=== PATIENT | male | born 1985 | race African-American/Black ===

== ENCOUNTER 2017-02-02 21:02 | Emergency (ER) | payer OTHER ==
[~2017-02-02] VITALS: Ht 180.3 cm; Wt 99.0 kg
[~2017-02-02 21:02] MED LIST: ALBUAER INH; ASPI-232 PO; ASPI1TAB83 PO; BUSP-8 PO; CRDCD/180 PO; DILT180C58 PO; GLC/500 PO; PRLSR20 PO; PROP1TAB PO; SERT50TA PO
[2017-02-02 21:16] VITALS: TEMP 37.5; Ht 180.3 cm; Wt 99.0 kg
[2017-02-02] MEDS ORDERED: PROP1TAB PO (21:45)
[2017-02-02] MEDS ORDERED: PANT40TA PO (21:48)
[2017-02-02 21:55] LABS: BASO % 0.1 %; BASO ABS # 0.01 K/uL (0-0.2); COMPLETE YES; EOS % 1.4 %; HEMATOCRIT 41.2 % (42-52); IG% 0.2 %; LYMPH % 30.7 %; MEAN CELL VOLUME 89.2 fL (80-100); MEAN CORPUSCULAR HEMOGLOBIN 31.8 pg (25-34); MEAN CORPUSCULAR HGB CONC 35.7 g/dl (32-36); MONO % 6.6 %; PLATELET COUNT 242 K/uL (130-400); RED BLOOD COUNT 4.62 M/uL (4.7-6.1); WHITE BLOOD COUNT 9.78 K/uL (4.8-10.8)
--- NOTE | 2017-02-02 22:10 | DIAGNOSTIC IMAGING REPORT ---
CHEST ONE VIEW PORTABLE CLINICAL HISTORY: Atypical chest pain COMPARISON STUDY: June 22, 2016 FINDINGS: The cardiac and mediastinal contours are normal. There is no evidence of focal pulmonary consolidation. There is no evidence of failure. No pleural effusions are visualized.[ IMPRESSION: No active disease in the chest. Electronically signed by: Milo Herzog M.D. 02/02/2017 10:08 PM Dictated Date/Time: 02/02/2017 10:08 PM
[2017-02-02 22:20] LABS: ALKALINE PHOSPHATASE 60 U/L (45-117); ALT/SGPT 52 U/L (12-78); BLOOD UREA NITROGEN 7 mg/dl (7-18); BUN/CREATININE RATIO 5.8 (10-20); CARBON DIOXIDE 26 mmol/L (21-32); CHLORIDE 103 mmol/L (98-107); GLUCOSE 128 mg/dl (70-99)
[2017-02-02 22:36] LABS: AST/SGOT 33 U/L (15-37); MAGNESIUM 1.9 mg/dl (1.8-2.4); POTASSIUM 3.5 mmol/L (3.5-5.1); SODIUM 144 mmol/L (136-145)
[2017-02-02 22:37] LABS: CKMB/CK RATIO 0.1 (0-3.0)
[2017-02-02 23:55] VITALS: BP 125/87; PULSE 91; O2SAT 98
--- NOTE | 2017-02-03 03:15 | EMERGENCY ROOM VISIT NOTE ---
History First contact with patient: 21:41 Chief Complaint: TACHYCARDIA Stated Complaint: CHEST PRESSURE Nursing Triage Summary: Arrives ALS for evaluation of sudden onset of chest pressure, palpitation with radiation to leftarm/hand. Pt reports left arm still tingling, cold feeling and reports chest pressure 6. Pt reports drinking and arguing with s/o today. PMH: SVT; Ablation x 2; will have loop recorder inplanted because ablation failed. DM type 2; PTSD; TBI; asthma; PUD; HTN. History of Present Illness The patient is a 31 year old male who presents to the Emergency Room with complaints of chest discomfort with feeling fatigued. Patient's been having chest discomfort since noon today. He is and fatigue for the past week. He has driven to [place] recently for further workup for his history of SVT. Patient describes the chest discomfort as pressure, 5 out of 10. Nothing makes it better or worse. He has been underneath more stressed lately. He is having problems with his marriage currently. Patient denies suicidal or homicidal ideations, delusions, hallucinations, dyspnea, abdominal pain, leg pain or swelling. He states he had some alcohol today. No drugs. He does smoke. Review of Systems See HPI for pertinent positives & negatives. A total of 10 systems reviewed and were otherwise negative. Past Medical/Surgical History Medical Problems: (1) Diabetes (2) Hypertension (3) SVT (supraventricular tachycardia) PTSD, TBI, asthma Family History Patient reports no known family medical history. Social History Smoking Status: Current Every Day Smoker Alcohol Use: occasionally Drug Use: none Marital Status: Housing Status: lives with family Occupation Status: employed Current/Historical Medications Scheduled Aspirin (Aspir-81), 81 MG PO DAILY Diltiazem Hcl Coated Beads (Diltiazem Cd), 180 MG PO DAILY Metformin Hcl (Glucophage), 500 MG PO BIDM Pantoprazole (Protonix), 40 MG PO BID Propranolol (Inderal), 60 MG PO BID Scheduled PRN Albuterol (Proventil Hfa), 2 PUFFS INH Q4 PRN for SOB/Wheezing Allergies Coded Allergies: No Known Allergies (Unverified , 06/22/16) Physical Exam Vital Signs Date Time Temp Pulse Resp B/P Pulse Ox O2 Delivery O2 Flow Rate FiO2 02/02/17 23:55 91 18 125/87 98 02/02/17 23:10 88 18 124/70 98 Room Air 4/8/17 21:54 Room Air 02/02/17 21:53 Room Air 02/02/17 21:16 37.5 101 19 151/92 99 Room Air 02/02/17 21:10 106 02/02/17 21:09 Room Air Pain Rating (0-10): 0 Physical Exam VITALS: Vitals are noted on the nurse's note and reviewed by myself. Vital signs stable. GENERAL: Pleasant male, in no acute distress, nondiaphoretic, well-developed well-nourished. SKIN: The skin was without rashes, erythema, edema, or bruising. There is no tenting of the skin. Capillary reflex less than 2 seconds. HEAD: Normocephalic atraumatic. EARS: External auditory canals clear, tympanic membranes pearly varela without erythema or effusion bilaterally. EYES: Pupils equal round and reactive to light and accommodation. Conjunctivae without injection, sclerae without icterus. Extraocular movements intact. NOSE: Patent, turbinates without inflammation or discharge. MOUTH: Mucous membranes moist. Pharynx without erythema or exudate. Uvula midline. Airway patent. Tongue does not deviate. NECK: Supple without nuchal rigidity. No lymphadenopathy. No thyromegaly. Cervical spine is nontender. No JVD. HEART: Regular rate and rhythm without murmurs gallops or rubs. Chest nontender to palpation LUNGS: Clear to auscultation bilaterally without wheezes, rales or rhonchi. No dullness to percussion. No retractions or accessory muscle use. ABDOMEN: Positive bowel sounds x 4. Normal tympanic percussion. Soft, nontender, without masses or organomegaly. Colon sign negative. No guarding or rebound tenderness. MUSCULOSKELETAL: No muscle atrophy, erythema, or edema noted. NEURO: Patient was alert and oriented to person place and time. Normal sensation to light and sharp touch. No focal neurological deficits. Medical Decision & Procedures Laboratory Results 02/02/17 21:00 Red Blood Count 4.62, Mean Corpuscular Volume 89.2, Mean Corpuscular Hemoglobin 31.8, Mean Corpuscular Hemoglobin Concent 35.7, Mean Platelet Volume 11.0, Neutrophils (%) (Auto) 61.0, Lymphocytes (%) (Auto) 30.7, Monocytes (%) (Auto) 6.6, Eosinophils (%) (Auto) 1.4, Basophils (%) (Auto) 0.1, Neutrophils # (Auto) 5.96, Lymphocytes # (Auto) 3.00, Monocytes # (Auto) 0.65, Eosinophils # (Auto) 0.14, Basophils # (Auto) 0.01 02/02/17 21:00 Test 02/02/17 21:00 02/02/17 22:09 White Blood Count 9.78 K/uL (4.8-10.8) Red Blood Count 4.62 M/uL (4.7-6.1) Hemoglobin 14.7 g/dL (14.0-18.0) Hematocrit 41.2 % (42-52) Mean Corpuscular Volume 89.2 fL (80-100) Mean Corpuscular Hemoglobin 31.8 pg (25-34) Mean Corpuscular Hemoglobin Concent 35.7 g/dl (32-36) Platelet Count 242 K/uL (130-400) Mean Platelet Volume 11.0 fL (7.4-10.4) Neutrophils (%) (Auto) 61.0 % Lymphocytes (%) (Auto) 30.7 % Monocytes (%) (Auto) 6.6 % Eosinophils (%) (Auto) 1.4 % Basophils (%) (Auto) 0.1 % Neutrophils # (Auto) 5.96 K/uL (1.4-6.5) Lymphocytes # (Auto) 3.00 K/uL (1.2-3.4) Monocytes # (Auto) 0.65 K/uL (0.11-0.59) Eosinophils # (Auto) 0.14 K/uL (0-0.5) Basophils # (Auto) 0.01 K/uL (0-0.2) RDW Standard Deviation 45.6 fL (36.4-46.3) RDW Coefficient of Variation 13.9 % (11.5-14.5) Immature Granulocyte % (Auto) 0.2 % Immature Granulocyte # (Auto) 0.02 K/uL (0.00-0.02) Anion Gap 14.0 mmol/L (3-11) Est Creatinine Clear Calc Drug Dose 108.9 ml/min Estimated GFR () 94.1 Estimated GFR (Non- 81.2 BUN/Creatinine Ratio 5.8 (10-20) Calcium Level 9.0 mg/dl (8.5-10.1) Magnesium Level 1.9 mg/dl (1.8-2.4) Total Bilirubin 0.5 mg/dl (0.2-1) Direct Bilirubin < 0.1 mg/dl (0-0.2) Aspartate Amino Transf (AST/SGOT) 33 U/L (15-37) Alanine Aminotransferase (ALT/SGPT) 52 U/L (12-78) Alkaline Phosphatase 60 U/L (45-117) Total Creatine Kinase 522 U/L (39-308) Creatine Kinase MB 0.6 ng/ml (0.5-3.6) Creatine Kinase MB Ratio 0.1 (0-3.0) Troponin I < 0.015 ng/ml (0-0.045) Total Protein 7.9 gm/dl (6.4-8.2) Albumin 4.1 gm/dl (3.4-5.0) Lipase 195 U/L (73-393) Thyroid Stimulating Hormone (TSH) 1.590 uIu/ml (0.300-4.500) Chemistry Specimen Hemolysis D-Dimer 430 ug/L FEU (0-500) Ethyl Alcohol mg/dL < 3.0 mg/dl (0-3) ED Course Prior records/ancillary studies reviewed. Triage Nursing notes reviewed. The patient's history was concerning for chest pain. Differential diagnosis: Etiologies such as cardiac ischemia, aortic dissection, pulmonary embolism, pneumonia, pneumothorax, musculoskeletal, infections, pericarditis, myocarditis , esophageal rupture, gastrointestinal, as well as others were entertained. Physical examination: As above. ER treatment provided: By mouth fluids On reassessment the patient felt better. Diagnostic interpretation by me: The electrocardiogram was negative for pathologic change. Normal sinus, normal intervals, no acute ST-T wave changes. Rate of 105. Impression sinus tachycardia interpreted by myself The labs revealed negative d-dimer. Negative troponin, hyperglycemia without DKA Imaging studies: Chest x-ray as above CHEST ONE VIEW PORTABLE CLINICAL HISTORY: Atypical chest pain COMPARISON STUDY: June 22, 2016 FINDINGS: The cardiac and mediastinal contours are normal. There is no evidence of focal pulmonary consolidation. There is no evidence of failure. No pleural effusions are visualized.[ IMPRESSION: No active disease in the chest. Electronically signed by: Milo Herzog M.D. 02/02/2017 10:08 PM Exam and history seem consistent with noncardiac chest pain. Patient had unremarkable workup as above. Negative d-dimer. Negative troponin. He has been underneath more stress lately and having difficulties with his marriage. His symptoms could be related to this. [facility] or here in the ER sooner for chest pain, difficulty breathing, suicidal or homicidal ideations, worsening signs or symptoms or as needed.By the evaluation outlined above emergent etiologies such as cardiac ischemia, aortic dissection, pulmonary embolism, pneumonia, pneumothorax, infections, pericarditis, myocarditis, gastrointestinal, as well as others were deemed relatively unlikely. The pt informed about the findings as listed above. All questions were answered and pleased with the treatment. Return instructions were outlined and the patient was discharged in stable condition. ] Referral: The patient was referred back to primary care physician for follow-up in 2 to 3 days for a recheck of the current condition. Case reviewed with my attending Medical Decision As above Impression Primary Impression: Precordial chest pain Departure Information Dispostion Home / Self-Care Condition GOOD Referrals Maritza Alcantara (PCP) Forms WORK / SCHOOL INSTRUCTIONS, HOME CARE DOCUMENTATION FORM, IMPORTANT VISIT INFORMATION Patient Instructions Chest Pain - [facility] Additional Instructions Ibuprofen(Motrin, Advil) may be used for fever or pain. Use 600mg every six hours as needed. Take with food. Avoid using more than 2400mg in a 24 hour period. Do not use 2400mg per day for more than three consecutive days without physician direction. Prolonged inappropriate use can lead to stomach upset or ulcers. (AND/OR) Acetaminophen(Tylenol) may be used for fever or pain. Use 1000mg every six hours as needed. Avoid using more than 3000mg in a 24 hour period. Rest and drink plenty of fluids as tolerated. Continue current medications. Avoid strenuous activities and anything that worsens your pain. Resume normal activities once your symptoms resolve. Return to the ER immediately for worsening or persistent chest pain, abdominal pain, vomiting, fevers, chest pains, difficulty breathing, worsening of your condition, or as needed. Follow up with your primary physician in 2-3 days for a recheck of your current condition.
== END 2017-02-02 23:56 | disposition home or self-care (01) ==
LOC: EDBD 21:02 → C.EDB 21:04
DX: R07.2 Precordial pain (principal); E11.9 Type 2 diabetes mellitus without complications; I10 Essential (primary) hypertension; F43.10 Post-traumatic stress disorder, unspecified; I47.1 Supraventricular tachycardia; S06.9X0A Unspecified intracranial injury without loss of consciousness, initial encounter; X58.XXXA Exposure to other specified factors, initial encounter; J45.909 Unspecified asthma, uncomplicated; F17.200 Nicotine dependence, unspecified, uncomplicated; Z79.82 Long term (current) use of aspirin

== ENCOUNTER 2018-02-24 15:37 | Emergency (ER) | payer OTHER ==
[~2018-02-24] VITALS: Ht 180.3 cm; Wt 111.4 kg
[~2018-02-24 15:37] MED LIST changes: -ASPI1TAB83 PO; -BUSP-8 PO; -CRDCD/180 PO; -DILT180C58 PO; +DILT180C96 PO; +PANT40TA PO; -PRLSR20 PO; -SERT50TA PO
[2018-02-24 15:48] VITALS: TEMP 36.8; O2SAT 100; Ht 180.3 cm; Wt 111.4 kg
--- NOTE | 2018-02-24 16:03 | EMERGENCY ROOM VISIT NOTE ---
History Report prepared by Maribeth: Annalee Vargas Under the Supervision of: Dr. Stone Abebe D.O. First contact with patient: 15:43 Chief Complaint: PALPITATIONS Stated Complaint: PALPITATIONS History of Present Illness The patient is a 32 year old male who presents to the Emergency Room with complaints of a resolved episode of heart palpitations which occurred prior to arrival. 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 The patient states that he then lost consciousness, noting that he was told his heart had stopped beating. He followed up with a pan washer afterwards and was diagnosed with supraventricular tachycardia. On 10/29/2017 the patient had a pacemaker put in place. Earlier today, the patient states that he had an episode of palpitations that last about 3 minutes. Afterwards, he felt exhausted and a "little off". He denies any chest pain, trouble breathing, or recent illness. Source of History: patient Onset: today Position: other (heart) Quality: other (palpitations) Timing: resolved Associated Symptoms: No chest pain Note: Patient denies trouble breathing. Review of Systems See HPI for pertinent positives & negatives. A total of 10 systems reviewed and were otherwise negative. Past Medical & Surgical Medical Problems: (1) Diabetes (2) Hypertension (3) SVT (supraventricular tachycardia) Family History Patient reports no known family medical history. Social History Smoking Status: Current Every Day Smoker Alcohol Use: occasionally Drug Use: none Marital Status: Housing Status: lives with family Occupation Status: employed Current/Historical Medications Scheduled Aspirin (Aspir-81), 81 MG PO DAILY Diltiazem Hcl Coated Beads (Diltiazem Cd), 180 MG PO DAILY Duloxetine Hcl (Cymbalta), 60 MG PO DAILY Fish Oil (Linwood-3), 1 CAP PO DAILY Metformin Hcl (Glucophage), 500 MG PO BIDM Propranolol (Inderal), 60 MG PO BID Rabeprazole Sodium (Aciphex), 20 MG PO BID Ranitidine HCl (Ranitidine HCl), 300 MG PO HS Scheduled PRN Albuterol Hfa (Ventolin Hfa), 2-4 PUFFS INH Q6H PRN for SOB/Wheezing Allergies Coded Allergies: Ibuprofen (Unverified Allergy, Unknown, RASH, 02/24/18) Physical Exam Vital Signs Date Time Temp Pulse Resp B/P (MAP) Pulse Ox O2 Delivery O2 Flow Rate FiO2 02/24/18 17:33 86 16 124/76 99 Room Air 02/24/18 16:27 84 02/24/18 15:48 36.8 83 12 139/88 100 Room Air 02/24/18 15:48 100 Room Air 02/24/18 15:48 100 Room Air Physical Exam GENERAL: Patient is awake, alert, and in no acute distress. Patient is resting comfortably and showing no signs of anxiety EYES: The conjunctivae are clear. The pupils are round and reactive. EARS, NOSE, MOUTH AND THROAT: The nose is without any evidence of any deformity. Mucous membranes are moist tongue is midline NECK: The neck is nontender and supple. RESPIRATORY: Normal respiratory effort is noted there is no evidence of wheezing rhonchi or rales CARDIOVASCULAR: Regular rate and rhythm noted there no murmurs rubs or gallops normal S1 normal S2 GASTROINTESTINAL: The abdomen is soft. Bowel sounds are present in all quadrants. Abdomen is nontender MUSCULOSKELETAL/EXTREMITIES: There is no evidence of gross deformity full range of motion is noted in the hips and shoulders SKIN: There is no obvious evidence of any rash. There are no petechiae, pallor or cyanosis noted. NEUROLOGIC: Patient is awake alert and oriented x3 Medical Decision & Procedures ER Provider Diagnostic Interpretation: Radiology results as stated below per my review and radiologist interpretation: CHEST ONE VIEW PORTABLE CLINICAL HISTORY: EVALUATE ALTERED MENTAL STATUS/WEAKNESS COMPARISON STUDY: 02/02/2017 FINDINGS: Interval placement of a permanent bipolar cardiac pacemaker. Leads in good position. No evidence of pneumothorax. Lungs are considered clear. IMPRESSION: No acute process. The above report was generated using voice recognition software. It may contain grammatical, syntax or spelling errors. Electronically signed by: Luis Fernando Parker M.D. 02/24/2018 4:47 PM Dictated Date/Time: 02/24/2018 4:46 PM Laboratory Results 02/24/18 15:40 Red Blood Count 4.99, Mean Corpuscular Volume 87.8, Mean Corpuscular Hemoglobin 31.5, Mean Corpuscular Hemoglobin Concent 35.8, Mean Platelet Volume 10.6, Neutrophils (%) (Auto) 51.5, Lymphocytes (%) (Auto) 40.5, Monocytes (%) (Auto) 6.0, Eosinophils (%) (Auto) 1.5, Basophils (%) (Auto) 0.4, Neutrophils # (Auto) 4.25, Lymphocytes # (Auto) 3.33, Monocytes # (Auto) 0.49, Eosinophils # (Auto) 0.12, Basophils # (Auto) 0.03 02/24/18 15:40 Test 02/24/18 15:40 White Blood Count 8.23 K/uL (4.8-10.8) Red Blood Count 4.99 M/uL (4.7-6.1) Hemoglobin 15.7 g/dL (14.0-18.0) Hematocrit 43.8 % (42-52) Mean Corpuscular Volume 87.8 fL (80-100) Mean Corpuscular Hemoglobin 31.5 pg (25-34) Mean Corpuscular Hemoglobin Concent 35.8 g/dl (32-36) Platelet Count 220 K/uL (130-400) Mean Platelet Volume 10.6 fL (7.4-10.4) Neutrophils (%) (Auto) 51.5 % Lymphocytes (%) (Auto) 40.5 % Monocytes (%) (Auto) 6.0 % Eosinophils (%) (Auto) 1.5 % Basophils (%) (Auto) 0.4 % Neutrophils # (Auto) 4.25 K/uL (1.4-6.5) Lymphocytes # (Auto) 3.33 K/uL (1.2-3.4) Monocytes # (Auto) 0.49 K/uL (0.11-0.59) Eosinophils # (Auto) 0.12 K/uL (0-0.5) Basophils # (Auto) 0.03 K/uL (0-0.2) RDW Standard Deviation 44.3 fL (36.4-46.3) RDW Coefficient of Variation 13.7 % (11.5-14.5) Immature Granulocyte % (Auto) 0.1 % Immature Granulocyte # (Auto) 0.01 K/uL (0.00-0.02) Prothrombin Time 10.1 SECONDS (9.0-12.0) Prothromb Time International Ratio 1.0 (0.9-1.1) Activated Partial Thromboplast Time 29.9 SECONDS (21.0-31.0) Partial Thromboplastin Ratio 1.2 Anion Gap 6.0 mmol/L (3-11) Est Creatinine Clear Calc Drug Dose 104.6 ml/min Estimated GFR () 84.1 Estimated GFR (Non- 72.5 BUN/Creatinine Ratio 8.5 (10-20) Calcium Level 8.9 mg/dl (8.5-10.1) Magnesium Level 2.2 mg/dl (1.8-2.4) Total Bilirubin 0.5 mg/dl (0.2-1) Direct Bilirubin < 0.1 mg/dl (0-0.2) Aspartate Amino Transf (AST/SGOT) 25 U/L (15-37) Alanine Aminotransferase (ALT/SGPT) 34 U/L (12-78) Alkaline Phosphatase 80 U/L (45-117) Troponin I < 0.015 ng/ml (0-0.045) Total Protein 8.4 gm/dl (6.4-8.2) Albumin 4.2 gm/dl (3.4-5.0) Thyroid Stimulating Hormone (TSH) 1.710 uIu/ml (0.300-4.500) Laboratory results per my review. ECG Per My Interpretation Indication: palpitations Rate (beats per minute): 75 Rhythm: normal sinus Findings: no ectopy, other (No acute ST segments) Change: no significant change (02/02/17) ED Course 1544: The patient was evaluated in room C6. A complete history and physical examination were performed. 1633: [employer]'s rep states that the patient is having SVT. 1712: Upon reevaluation, the patient is resting comfortably. I discussed the results and treatment plan with him. He verbalized agreement of the treatment plan. The patient was discharged home. Medical Decision Prior records/ancillary studies reviewed. Triage Nursing notes reviewed. The patient's history was concerning for palpitations. Differential diagnosis: Etiologies such as premature contractions, electrolyte abnormality, cardiac dysrhythmia, thyroid dysfunction, pulmonary embolism, infection, gastrointestinal, as well as others were entertained. The patient is a 32-year-old male who presented to the emergency department for palpitations. The patient is a history of SVT with multiple ablation procedures. He has a pacemaker in place. The patient had interrogation of his pacemaker and it revealed episodes of SVT. I discussed patient's laboratory and radiographic studies with him. He was encouraged to rest and avoid any strenuous activity. He was also encouraged to follow-up with his primary pan washer as soon as possible for further evaluation but return to the emergency department immediately if symptoms change worsen or the need arises. He was also encouraged to continue all medications as prescribed. Medication Reconcilliation Current Medication List: was personally reviewed by me Blood Pressure Screening Patient's blood pressure: Normal blood pressure Blood pressure disposition: Did not require urgent referral Impression Primary Impression: Palpitations Additional Impression: SVT (supraventricular tachycardia) Scribe Attestation The scribe's documentation has been prepared under my direction and personally reviewed by me in its entirety. I confirm that the note above accurately reflects all work, treatment, procedures, and medical decision making performed by me. Departure Information Dispostion Home / Self-Care Referrals Maritza Alcantara (PCP) Forms HOME CARE DOCUMENTATION FORM, IMPORTANT VISIT INFORMATION, WORK / SCHOOL INSTRUCTIONS Patient Instructions My [facility] Additional Instructions Call your primary pan washer to schedule a follow-up appointment. Continue to keep yourself well hydrated and drink plenty liquids. Continue all medications as prescribed. Problem Qualifiers
[2018-02-24 16:16] LABS: BASO % 0.4 %; BASO ABS # 0.03 K/uL (0-0.2); EOS % 1.5 %; EOS ABS # 0.12 K/uL (0-0.5); HEMATOCRIT 43.8 % (42-52); HEMOGLOBIN 15.7 g/dL (14.0-18.0); IG# 0.01 K/uL (0.00-0.02); LYMPH % 40.5 %; LYMPH ABS # 3.33 K/uL (1.2-3.4); MEAN CELL VOLUME 87.8 fL (80-100); MEAN CORPUSCULAR HEMOGLOBIN 31.5 pg (25-34); MEAN CORPUSCULAR HGB CONC 35.8 g/dl (32-36); MEAN PLATELET VOLUME 10.6 fL (7.4-10.4); MONO ABS # 0.49 K/uL (0.11-0.59); NEUT % 51.5 %; NEUT ABS # 4.25 K/uL (1.4-6.5); PLATELET COUNT 220 K/uL (130-400); RED CELL DISTRIBUTION WIDTH CV 13.7 % (11.5-14.5); RED CELL DISTRIBUTION WIDTH SD 44.3 fL (36.4-46.3); WHITE BLOOD COUNT 8.23 K/uL (4.8-10.8)
[2018-02-24 16:19] LABS: PTT PATIENT 29.9 SECONDS (21.0-31.0)
[2018-02-24 16:23] LABS: ALBUMIN 4.2 gm/dl (3.4-5.0); ALT/SGPT 34 U/L (12-78); AST/SGOT 25 U/L (15-37); BLOOD UREA NITROGEN 11 mg/dl (7-18); CALCIUM 8.9 mg/dl (8.5-10.1); CARBON DIOXIDE 26 mmol/L (21-32); CREATININE 1.31 mg/dl (0.60-1.40); GLUCOSE 119 mg/dl (70-99); POTASSIUM 3.5 mmol/L (3.5-5.1); SODIUM 139 mmol/L (136-145)
[2018-02-24 16:34] LABS: ALKALINE PHOSPHATASE 80 U/L (45-117); TOTAL PROTEIN 8.4 gm/dl (6.4-8.2)
--- NOTE | 2018-02-24 16:48 | DIAGNOSTIC IMAGING REPORT ---
CHEST ONE VIEW PORTABLE CLINICAL HISTORY: EVALUATE ALTERED MENTAL STATUS/WEAKNESS COMPARISON STUDY: 02/02/2017 FINDINGS: Interval placement of a permanent bipolar cardiac pacemaker. Leads in good position. No evidence of pneumothorax. Lungs are considered clear. IMPRESSION: No acute process. The above report was generated using voice recognition software. It may contain grammatical, syntax or spelling errors. Electronically signed by: Luis Fernando Parker M.D. 02/24/2018 4:47 PM Dictated Date/Time: 02/24/2018 4:46 PM
[2018-02-24] MEDS ORDERED: DULO60CA44 PO (17:01)
[2018-02-24] MEDS ORDERED: OMEG10007 PO (17:01)
[2018-02-24] MEDS ORDERED: RABE20TA5 PO (17:01)
[2018-02-24] MEDS ORDERED: ZNT150 PO (17:01)
[2018-02-24] MEDS ORDERED: VNTHFA/IN INH (17:01)
[2018-02-24 17:33] VITALS: BP 124/76; PULSE 86; O2SAT 99
== END 2018-02-24 17:35 | disposition home or self-care (01) ==
LOC: EDBD 15:37 → C.EDC 15:39
DX: R00.2 Palpitations (principal); I47.1 Supraventricular tachycardia; Z95.0 Presence of cardiac pacemaker; E11.9 Type 2 diabetes mellitus without complications; I10 Essential (primary) hypertension; F17.210 Nicotine dependence, cigarettes, uncomplicated; Z79.82 Long term (current) use of aspirin; Z79.84 Long term (current) use of oral hypoglycemic drugs; Z79.899 Other long term (current) drug therapy; Z88.6 Allergy status to analgesic agent

== ENCOUNTER 2019-03-15 16:19 | Observation (INO) ==
--- OUTSIDE RECORDS SUMMARY | 2019-03-15 16:23 | External Medical Summary | Continuity of Care Document ---
:1985 Author Name Magali M.Lico Address Unavailable Unavailable , Care Team Providers Name Role Phone Unavailable Unavailable Unavailable PCP, NO Unavailable Unavailable Problems Paroxysmal SVT (supraventricular tachycardia) (427.0) (I47.1 ) Diabetes mellitus (250.00) (E11.9) Hypertension (401.9) (I10) Shortness of breath (786.05) (R06.02) Anxiety (300.00) (F41.9) Palpitation (785.1) (R00.2) Allergies and Adverse Reactions No Known Allergies (Allergy) Medications busPIRone HCl - 10 MG Oral Tablet; TAKE 1 TABLET 3 times kurt ly PRN , M.D. Start: 06-Jul-2016 Refills: 0 Pantoprazole Sodium 40 MG Oral Tablet De layed Release; Take 1 tablet twice daily , M.D. Start: 06-Jul-2016 Refills: 0 traZODone HCl - 50 MG Oral Tablet; TAKE 1 TABLET Bedtime , M .D. Refills: 0 Sertraline HCl - 100 MG Oral Tablet; TAKE 0.5 TABLET Daily , M.D. Refills: 0 Propranolol HCl - 60 MG Oral Tablet; Take 1 tablet twice kurt ly , M.D. Refills: 0 metFORMIN HCl - 500 MG Oral Tablet; Take 1 tablet twice zabrina y , M.D. Refills: 0 dilTIAZem HCl ER Beads 180 MG Oral Capsu le Extended Release 24 Hour; TAKE 1 CAPSULE Daily , M.D. Refills: 0 Aspirin 81 MG Oral Tablet Delayed Release; TAKE 1 TABLET BY MOUTH DAILY , M.D. Refills: 0 Albuterol 90 MCG/ACT AERS; INHALE 1 PUFFS 4 times daily PRN , M.D. Refills: 0 Accu-Chek Michelle Plus In Vitro Strip; USE 1 STRIP Three a Liset dickerson M.D. Refills: 0 Procedures Procedures not documented Immunizations Immunizations not documented Plan of Treatment Planned Observations Planned Goals not documented Results No Known Results Results not documented
[2019-03-15] MEDS ORDERED: ASPIRIN CHEW 324 MG PO STA (16:38)
[2019-03-15 16:58] LABS: Basophils # (auto) 0.03 K/uL (0-0.2); Basophils % (auto) 0.2 %; Eosinophils # (auto) 0.05 K/uL (0-0.5); Eosinophils % (auto) 0.4 %; Hematocrit (blood only) 41.5 % (42-52); Hemoglobin 15.3 g/dL (14.0-18.0); Immature Granulocytes # (auto) 0.02 K/uL (0.00-0.02); Immature Granulocytes % (auto) 0.2 %; Lymphocytes # (auto) 2.79 K/uL (1.2-3.4); Mean Corpuscular Hgb Conc 36.9 g/dL (32-36); Mean Corpuscular Volume 86.5 fL (80-100); Mean Platelet Volume 10.1 fL (7.4-10.4); Monocytes # (auto) 0.75 K/uL (0.11-0.59); Monocytes % (auto) 6.2 %; Neutrophils # (auto) 8.49 K/uL (1.4-6.5); Platelet Count 231 K/uL (130-400); RDW Coefficient of Variation 13.6 % (11.5-14.5); White Blood Count 12.13 K/uL (4.8-10.8)
[2019-03-15 17:16] LABS: Calcium 9.1 mg/dl (8.5-10.1); Creatinine Clr Calc Pharmacy 93.3 ml/min; Est GFR (African American) 80.5; Est GFR (Non-African American) 69.5; Potassium 3.5 mmol/L (3.5-5.1)
[2019-03-15 17:17] LABS: D Dimer 380 ug/L FEU (0-500); Partial Thromboplastin Ratio 1.1; Partial Thromboplastin Time 29.9 Seconds (21.0-31.0); Prothrombin Time 10.3 Seconds (9.0-12.0)
--- NOTE | 2019-03-15 17:17 | XRay Report ---
XR chest 1V portable HISTORY: Atypical Chest Pain COMPARISON: Chest 08/12/2018. FINDINGS: The lungs are clear. Cardiac silhouette is normal in size. No pleural effusions. No pneumot horax. Left-sided dual-chamber pacemaker is again noted. IMPRESSION: No acute process. Electronically signed by: Johan Duncan M.D. 03/15/2019 5:15 PM
[2019-03-15 17:21] LABS: Troponin I 0.027 ng/ml (0-0.045)
--- NOTE | 2019-03-15 18:45 | History & Physical Report ---
Date of Service March 15, 2019 Assessment & Plan (1) Chest pain: admit telemetry In the setting of history of SVT with rapid heart rate as seen on patient's home blood pressure cuff. In the ED heart rate has only been as high as 113 Troponins q6h, EKG showed NSR Patient reports that he cannot do a walking stress test, will have to be dobutamine if it's necessary Consult cardiology (2) Hypertension: continue diltiazem and propranolol (3) SVT (supraventricular tachycardia): see above (4) DMII (diabetes mellitus, type 2): type II hold metoformin - ss, bsgs ac & hs (5) Leukocytosis: Will check Lyme antibody CBC in am (6) Asthma: Continue home albuterol (7) DVT prophylaxis: SCDs History of Present Illness Mr. Haywood presents to the ED today for complaints of chest pain and rapid heart rate. He was mowing his lawn today when he developed precordial chest pain that radiated to his left arm and back with associated diaphoresis, palpitations, dizziness and blue fingers on the left. He took a shower to try and calm down which did not help. He took his blood pressure on his home meter which showed a spb around 100 and heart rate as high as the 130s. 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, DMII, asthma, htn, PTSD, TBI, SVT, neuropathy, hypokalemia Social: , has six kids, on disability with the [employer], smokes 4 cigarettes per day and vapes with about a 9 year pack history, oral marijuana use twice per day due to evangelical reasons, very rare alcohol about 1 beer per month Primary Care Provider: Maritza Alcantara Allergies Allergy/AdvReac Type Severity Reaction Status Date / Time ibuprofen Allergy Mild RASH Verified 03/15/19 17:45 Pork/Porcine Containing Allergy Unknown Unknown Verified 03/15/19 17:45 Products MARSHMALLOWS Allergy Unknown Unknown Uncoded 03/15/19 17:45 Home Medications Home Medications Medication Instructions Recorded Confirmed Type albuterol sulfate 1 puff INHALATION Q4 PRN 08/12/18 03/15/19 History aspirin [Aspir-81] 81 mg PO DAILY 08/12/18 03/15/19 History betamethasone dipropionate 1 applic TOPICAL DAILY PRN 08/12/18 03/15/19 History diltiazem HCl 180 mg PO DAILY 08/12/18 03/15/19 History hydroxyzine HCl 25 mg PO HS PRN 08/12/18 03/15/19 History metformin 500 mg PO BID 08/12/18 03/15/19 History propranolol 60 mg PO BID 08/12/18 03/15/19 History urea 1 applic TOPICAL DAILY PRN 08/12/18 03/15/19 History venlafaxine 112.5 mg PO DAILY 08/12/18 03/15/19 History venlafaxine 112.5 mg PO DAILY 08/12/18 03/15/19 History Past Med/Surg History Medical History Diabetes (Chronic) Hypertension (Chronic) SVT (supraventricular tachycardia) (Chronic) Presence of combination internal cardiac defibrillator (ICD) and pacemaker PTSD (post-traumatic stress disorder) TBI (traumatic brain injury) Family History Other No significant family history Social History Preferred Language: Chinese marital status: Current Living Situation: Alone current occupational status: disabled Feels Safe at Home: Yes Smoking Status: Current every day smoker Hx Alcohol Use: Yes Hx Substance Use: Yes Review of Systems Review of Systems: All systems reviewed & are unremarkable except as noted in HPI & below Physical Exam Physical Exam: General: no distress Eyes: normal inspection, PERLL Respiratory: chest non tender, clear to auscultation, normal breath sounds, no respiratory distress, no accessory muscle use Cardiac: regular rate and rhythm, no rub or gallop, no murmur, no edema, no jvd GI/: active bowel sounds, no abd pain or tenderness, soft, non distended Extremities: normal range of motion, normal strength, non tender Neuro: alert, moves all extremities Psych:oriented x 3, normal mood and affect Skin: normal color, dry Results & Data Vital Signs (Past 12 Hours) Vital Signs Temp Pulse Pulse Resp BP BP Pulse Ox 03/15/19 16:52 97 03/15/19 16:51 97 H 15 116/84 98 03/15/19 16:21 36.7 C 113 H 18 126/84 98 Supervising Physician Co-Signing Physician Notes Patient seen and examined with Lisa MERAZ. I agree with her HPI, history, ROS, physical exam and A/P. Case was discussed with her as well as the dahl points in treatment. I personally reviewed the lab work and imaging and other diagnostic studies. 33 yo male with history of SVT with what sounds like tachy kely syndrome, had pacemaker placed 1 year ago, presents with chest pain/pressure of a few hours duration. Never had symptoms like this before. Associated with dyspnea, sweats, left finger tips changing color. Did not resolve until he took an aspirin in the ED. Does admit to a history of cardiac arrest in [place] while serving in the war but could not give further details. No known coronary disease. He says that his father supposedly has a history of having a heart attack but he says that his father is prone to "telling stories" so he's not sure if that is true. No other family members with CAD. In the ED his EKG was reviewed by me personally, it showed sinus tachycardia, no ST depressions or elevations, no TW inversions. There was widened P wave with notch to indicate some left atrial enlargement. Not paced on the EKG. Troponin negative, d dimer was normal. - Exertional chest pain/pressure, no known history of CAD but does have a complicated heart history of a 33 yo will observe on tele, repeat troponin at 2300 and then 0500 repeat EKG in the morning and as needed for chest pain interrogate pacemaker to determine if there was SVT during his symptoms, started around 1pm on 03/15 will consult cardiology since he has the heart history, hold on ordering echo or stress unless they feel these tests are warranted check lipid panel in the morning to further determine risk stratification risks for CAD: DM, smoker, HTN, male
[2019-03-15] MEDS ORDERED: BETAMETHASONE DIP AUG (DIPROLENE) 0.05% CR 15 GM TUBE EXT PRN (19:24)
[2019-03-15] MEDS ORDERED: POTASSIUM CHLORIDE 20 MEQ TABCR PO STA (19:24)
[2019-03-15] MEDS ORDERED: ACETAMINOPHEN 325 MG TAB PO PRN (19:24)
[2019-03-15] MEDS ORDERED: ONDANSETRON INJ 2 MG/ML 2 ML VIAL IV PRN (19:24)
[2019-03-15] MEDS ORDERED: NITROGLYCERIN SL 0.4 MG/TAB TAB SL PRN (19:24)
--- NOTE | 2019-03-15 19:48 | Emergency Department Note ---
Entered by Lloy Basurto acting as a scribe for History of Present Illness General Chief complaint: Cardiac Assessment Stated complaint: 134 PULSE, DIZZY, CHEST PAIN Time Seen by Provider: 03/15/19 16:32 Source: patient History of Present Illness Onset (ago): minute(s) (prior to arrival) Location: head Pain Consistency: + intermittent Maximum Pain Intensity: 7 Quality: + other (dizziness) Associated symptoms: + denies other symptoms (loss of consciousness, hemoptys is), + chest pain and + other (heart racing, felt like going to pass out, blue finger tips) The patient is a 33 year old male who presents to the ED with complaints of intermittent dizziness starting prior to arrival. The patient states that he was cutting the grass when he felt like his heart sped up. He states that he then felt dizzy and like he was going to pass out. He states that he noticed that his fingertips were blue and he was having sharp chest pains when he would breathe. He states that he became concerned as he has a history of SVT and the placement of a pacemaker so he came to the ED. The patient denies loss of consciousness, falling, hitting his head, hemoptysis, recent travel, and use of steroids. He notes that he is unsure if he is on blood thinners. Home Medications Home Medications Medication Instructions Recorded Confirmed Type albuterol sulfate 1 puff INHALATION Q4 PRN 08/12/18 03/15/19 History aspirin [Aspir-81] 81 mg PO DAILY 08/12/18 03/15/19 History betamethasone dipropionate 1 applic TOPICAL DAILY PRN 08/12/18 03/15/19 History diltiazem HCl 180 mg PO DAILY 08/12/18 03/15/19 History hydroxyzine HCl 25 mg PO HS PRN 08/12/18 03/15/19 History metformin 500 mg PO BID 08/12/18 03/15/19 History propranolol 60 mg PO BID 08/12/18 03/15/19 History urea 1 applic TOPICAL DAILY PRN 08/12/18 03/15/19 History venlafaxine 112.5 mg PO DAILY 08/12/18 03/15/19 History venlafaxine 112.5 mg PO DAILY 08/12/18 03/15/19 History Allergies Allergy/AdvReac Type Severity Reaction Status Date / Time ibuprofen Allergy Mild RASH Verified 03/15/19 17:45 Pork/Porcine Containing Allergy Unknown Unknown Verified 03/15/19 17:45 Products MARSHMALLOWS Allergy Unknown Unknown Uncoded 03/15/19 17:45 Past Med/Surg History Medical History Diabetes (Chronic) Hypertension (Chronic) SVT (supraventricular tachycardia) (Chronic) Presence of combination internal cardiac defibrillator (ICD) and pacemaker PTSD (post-traumatic stress disorder) TBI (traumatic brain injury) Family History Other No significant family history Social History Preferred Language: Danish marital status: Current Living Situation: Alone current occupational status: disabled Feels Safe at Home: Yes Smoking Status: Current every day smoker Hx Alcohol Use: Yes Hx Substance Use: Yes Review of Systems See HPI for pertinent positives & negatives. and A total of 10 systems reviewed and were otherwise negative Physical Exam Vital Signs Vital Signs - 24 hr 03/15/19 16:21 03/15/19 16:51 03/15/19 16:52 Temperature 36.7 C Temperature Source Oral Sepsis Recent Fever Within 48 Hours No Sepsis New/Unexplained Change in Mental Status No Sepsis Action Taken by Nursing No Action Required Pulse Rate 113 H 97 H Pulse Rate [Apical] 97 H Pulse Rate from SpO2 Sensor 97 H Respiratory Rate 18 15 Respiratory Effort / Characteristics Non-Labored Spontaneous Respiratory Depth Normal Normal Blood Pressure 126/84 116/84 Blood Pressure [Left Arm] 116/84 Blood Pressure Mean 98 94 Blood Pressure Mean [Left Arm] 94 Blood Pressure Position Sitting Pulse Oximetry 98 98 97 Oxygen Delivery Method Room Air Room Air Room Air 03/15/19 16:54 03/15/19 17:00 03/15/19 17:10 Temperature Temperature Source Sepsis Recent Fever Within 48 Hours Sepsis New/Unexplained Change in Mental Status Sepsis Action Taken by Nursing Pulse Rate 96 H 103 H 100 H Pulse Rate [Apical] Pulse Rate from SpO2 Sensor 95 H 100 H 100 H Respiratory Rate 17 19 20 Respiratory Effort / Characteristics Respiratory Depth Blood Pressure 113/70 Blood Pressure [Left Arm] Blood Pressure Mean 84 Blood Pressure Mean [Left Arm] Blood Pressure Position Pulse Oximetry 98 98 97 Oxygen Delivery Method 03/15/19 17:20 03/15/19 17:30 03/15/19 17:40 Temperature Temperature Source Sepsis Recent Fever Within 48 Hours Sepsis New/Unexplained Change in Mental Status Sepsis Action Taken by Nursing Pulse Rate 90 103 H 93 H Pulse Rate [Apical] Pulse Rate from SpO2 Sensor 91 H 100 H 83 Respiratory Rate 19 12 17 Respiratory Effort / Characteristics Respiratory Depth Blood Pressure 116/76 Blood Pressure [Left Arm] Blood Pressure Mean 89 Blood Pressure Mean [Left Arm] Blood Pressure Position Pulse Oximetry 98 99 99 Oxygen Delivery Method 03/15/19 17:50 03/15/19 18:00 03/15/19 18:10 Temperature Temperature Source Sepsis Recent Fever Within 48 Hours Sepsis New/Unexplained Change in Mental Status Sepsis Action Taken by Nursing Pulse Rate 87 89 83 Pulse Rate [Apical] Pulse Rate from SpO2 Sensor 89 87 81 Respiratory Rate 17 15 20 Respiratory Effort / Characteristics Respiratory Depth Blood Pressure 119/90 Blood Pressure [Left Arm] Blood Pressure Mean 99 Blood Pressure Mean [Left Arm] Blood Pressure Position Pulse Oximetry 98 98 98 Oxygen Delivery Method 03/15/19 18:20 Temperature Temperature Source Sepsis Recent Fever Within 48 Hours Sepsis New/Unexplained Change in Mental Status Sepsis Action Taken by Nursing Pulse Rate 82 Pulse Rate [Apical] Pulse Rate from SpO2 Sensor 91 H Respiratory Rate 21 Respiratory Effort / Characteristics Respiratory Depth Blood Pressure Blood Pressure [Left Arm] Blood Pressure Mean Blood Pressure Mean [Left Arm] Blood Pressure Position Pulse Oximetry 100 Oxygen Delivery Method GENERAL: He is oriented to person, place, and time. He appears well-developed and well-nourished. He does not appear distressed. HENT: Exam performed. - Head: Normocephalic and atraumatic. - Right Ear: External ear normal. No mastoid tenderness. - Left Ear: External ear normal. No mastoid tenderness. - Mouth/Throat: The oropharynx is clear and moist. No trismus in the jaw. No dental abscesses or uvula swelling. No oropharyngeal exudate or tonsillar abscesses. EYES: Conjunctivae and EOM are normal. Pupils are equal, round, and reactive to light. Right eye exhibits no discharge. Left eye exhibits no discharge. No scleral icterus. NECK: Normal range of motion. Neck supple. No JVD present. No spinous process tenderness present. No carotid bruit present. No rigidity. No tracheal deviation and normal range of motion present. No Brudzinski's sign and no Kernig's sign noted. CV: Tachycardic rate, regular rhythm, normal heart sounds and intact distal pulses. There is no peripheral edema. Palpable radial pulses bue. PULM/CHEST: Effort normal and breath sounds normal. No respiratory distress. No stridor. He has no wheezes. He has no rales. - Chest Wall: He exhibits no tenderness. ABD: The abdomen is soft. Bowel sounds are normal. He has no distension. No mass is present. There is no tenderness. There is no rebound, no guarding, no Colon's sign and no tenderness at McBurney's point. Rovsig negative. MUSC/SKEL: Normal range of motion. There is no peripheral edema, tenderness or deformity. LYMPH: No cervical adenopathy. NEURO: He is alert and oriented to person, place, and time. He has normal strength. No cranial nerve deficit or sensory deficit. Coordination and gait normal. GCS eye subscore is 4. GCS verbal subscore is 5. GCS motor subscore is 6. Cerebellar tests wnl. SKIN: Skin is warm and dry. He is not diaphoretic. PSYCH: He has a normal mood and affect. Behavior is normal. Judgment and thought content normal. Course 1635: The patient was evaluated in room C6. A complete history and physical exam was performed. 1833:Vital signs are within normal limits. His labs and imaging are within normal limits. The patient has a a strong history of cardiac problems including having a pacemaker placed at a young age, being on Propanolol and Cardizem, and a history of hypertension and diabetes. Given his risk factors, the patient will be admitted for Dr. Sotelo for a chest pain work up. The patient states that he has not followed up with cardiology since his pacemaker was placed 1.5 years ago. Consultations Consultation #1: I discussed the patient's case with Dr. Sotelo- [facility] Hospitalist. He will evaluate the patient for further management. Time: 18:10 Administered Medications Discontinued Medications Aspirin (Aspirin) 324 mg PO NOW STA Stop: 03/15/19 16:39 Last Admin: 03/15/19 16:50 Dose: 324 mg Documented by: [id number] Medical Decision Making Medical Records Attestation: I reviewed the patient's medical records. Home Medications Current Medication List: was personally reviewed by me Laboratory Data Attestation: I reviewed the patient's lab results. Result diagrams: 03/15/19 16:41 03/15/19 16:41 Lab Results 03/15/19 03/15/19 03/15/19 Range/Units 16:41 16:41 16:41 WBC 12.13 H (4.8-10.8) K/uL RBC 4.80 (4.7-6.1) M/uL Hgb 15.3 (14.0-18.0) g/dL Hct 41.5 L (42-52) % MCV 86.5 (80-100) fL MCH 31.9 (25-34) pg MCHC 36.9 H (32-36) g/dL RDW Std Deviation 43.0 (36.4-46.3) fL RDW Coeff of Harinder 13.6 (11.5-14.5) % Plt Count 231 (130-400) K/uL MPV 10.1 (7.4-10.4) fL Immature Gran % (Auto) 0.2 % Neut % (Auto) 70.0 % Lymph % (Auto) 23.0 % Casey % (Auto) 6.2 % Eos % (Auto) 0.4 % Baso % (Auto) 0.2 % Immature Gran # (Auto) 0.02 (0.00-0.02) K/uL Neut # (Auto) 8.49 H (1.4-6.5) K/uL Lymph # (Auto) 2.79 (1.2-3.4) K/uL Casey # (Auto) 0.75 H (0.11-0.59) K/uL Eos # (Auto) 0.05 (0-0.5) K/uL Baso # (Auto) 0.03 (0-0.2) K/uL PT 10.3 (9.0-12.0) Seconds INR 1.0 (0.9-1.1) APTT 29.9 (21.0-31.0) Seconds PTT Ratio 1.1 D-Dimer 380 (0-500) ug/L FEU Sodium 142 (136-145) mmol/L Potassium 3.5 (3.5-5.1) mmol/L Chloride 109 H (98-107) mmol/L Carbon Dioxide 24 (21-32) mmol/L Anion Gap 9.0 (3-11) BUN 10 (7-18) mg/dl Creatinine 1.35 (0.6-1.4) mg/dl Est Cr Clr Drug Dosing 93.3 ml/min Est GFR ( Amer) 80.5 Est GFR (Non-Af Amer) 69.5 BUN/Creatinine Ratio 7.0 L (10-20) Glucose 120 H (70-99) mg/dl Calcium 9.1 (8.5-10.1) mg/dl Troponin I 0.027 (0-0.045) ng/ml Lipase 153 (73-393) U/L Imaging Data Radiologist's Impression: Radiology results as stated below per my review and the radiologist's interpretation: XR chest 1V portable HISTORY: Atypical Chest Pain COMPARISON: Chest 08/12/2018. FINDINGS: The lungs are clear. Cardiac silhouette is normal in size. No pleural effusions. No pneumothorax. Left-sided dual-chamber pacemaker is again noted. IMPRESSION: No acute process. Electronically signed by: Johan Duncan M.D. 03/15/2019 5:15 PM ECG Data Attestation: I personally reviewed and interpreted this ECG as follows: Indication: other (dizziness) Rate (beats per minute): 103 Rhythm: sinus rhythm Findings: + other (OR, QRS, and QT-c intervals are within normal limits); no ST depression and no ST elevation Blood Pressure Blood Pressure Findings: Elevated blood pressure Blood Pressure Disposition: further management by hospitalist MDM Narrative Vital signs are within normal limits. His labs and imaging are within normal limits. The patient has a a strong history of cardiac problems including having a pacemaker placed at a young age, being on Propanolol and Cardizem, and a history of hypertension and diabetes. Given his risk factors, the patient will be admitted for Dr. Sotelo for a chest pain work up. The patient states that he has not followed up with cardiology since his pacemaker was placed 1.5 years ago. Impression & Plan Chest pain Discharge Plan Visit Data Chief Complaint: Cardiac Assessment Stated Complaint: 134 PULSE, DIZZY, CHEST PAIN ED Provider: Nathen Carney Discharge Problem: Chest pain Patient Disposition: Being Evaluated by Hospitalist Discharge Instructions Interventions: ED Discharge Assessment Last Done: 03/15/19 18:54 Discharge Problem: Chest pain Qualifiers: Chest pain type: unspecified Qualified Code(s): R07.9 - Chest pain, unspecified The scribe's documentation has been prepared under my direction and personally reviewed by me in its entirety. I confirm that the note above accurately reflects all work, treatment, procedures, and medical decision making performed by me.
[2019-03-15 20:21] LABS: Lyme Ab IgG w/WB Rflx Negative (Negative); Lyme Ab IgM w/WB Rflx Negative (Negative)
[2019-03-15] MEDS ORDERED: METFORMIN HCL 500 MG TAB PO SCH (21:00)
[2019-03-15] MEDS: GABAPENTIN 100 MG CAP PO SCH (21:26)
[2019-03-15] MEDS: PROPRANOLOL HCL 20 MG TAB PO SCH (21:26)
--- NOTE | 2019-03-15 22:52 | Progress Note ---
Date of Service March 15, 2019 Assessment & Plan (1) Code status needs review: Got a call from nursing regarding lack of code status. Patient states that he would like to be DNR/DNI--ordered. - Has capacity. But would recommend mental health eval by tone. Results & Data Vital Signs (Past 12 Hours) Vital Signs Temp Pulse Pulse Resp BP BP Pulse Ox 03/15/19 22:03 36.9 C 91 H 20 156/85 H 98 03/15/19 18:40 84 13 98 03/15/19 18:31 86 20 150/99 H 99 03/15/19 18:30 87 23 100 03/15/19 18:20 82 21 100 03/15/19 18:10 83 20 98 03/15/19 18:00 89 15 119/90 98 03/15/19 17:50 87 17 98 03/15/19 17:40 93 H 17 99 03/15/19 17:30 103 H 12 116/76 99 03/15/19 17:20 90 19 98 03/15/19 17:10 100 H 20 97 03/15/19 17:00 103 H 19 113/70 98 03/15/19 16:54 96 H 17 98 03/15/19 16:52 97 03/15/19 16:51 97 H 97 H 15 116/84 116/84 98 03/15/19 16:21 36.7 C 113 H 18 126/84 98
[2019-03-15] MEDS ORDERED: DEXTROSE 50% 50 ML SYRINGE IV PRN (23:30)
[2019-03-15] MEDS ORDERED: GLUCAGON FOR INJ 1 MG VIAL SQ PRN (23:30)
[2019-03-15] MEDS ORDERED: GLUCOSE 40% GEL 15 GM TUBE PO PRN (23:30)
[2019-03-15] MEDS ORDERED: CARBOHYDRATES FOR HYPOGLYCEMIA PO PRN (23:30)
[2019-03-15] MEDS ORDERED: GLUCOSE 10 TABS/TUBE PO PRN (23:30)
[2019-03-16 07:05] LABS: Basophils # (auto) 0.04 K/uL (0-0.2); Basophils % (auto) 0.4 %; Eosinophils # (auto) 0.12 K/uL (0-0.5); Eosinophils % (auto) 1.3 %; Hematocrit (blood only) 40.6 % (42-52); Hemoglobin 14.6 g/dL (14.0-18.0); Immature Granulocytes # (auto) 0.01 K/uL (0.00-0.02); Immature Granulocytes % (auto) 0.1 %; Lymphocytes # (auto) 3.74 K/uL (1.2-3.4); Lymphocytes % (auto) 39.5 %; Mean Corpuscular Volume 87.7 fL (80-100); Mean Platelet Volume 10.4 fL (7.4-10.4); Monocytes # (auto) 0.63 K/uL (0.11-0.59); Monocytes % (auto) 6.7 %; Neutrophils # (auto) 4.93 K/uL (1.4-6.5); Platelet Count 232 K/uL (130-400); Red Blood Count 4.63 M/uL (4.7-6.1); White Blood Count 9.47 K/uL (4.8-10.8)
[2019-03-16] MEDS ORDERED: INSULIN ASPART 100 UNITS/ML 3 ML PEN SC SCH (07:30)
[2019-03-16 07:40] LABS: BUN Creatinine Ratio 9.5 (10-20); Calcium 8.9 mg/dl (8.5-10.1); Creatinine Clr Calc Pharmacy 104.2 ml/min; Est GFR (African American) 91.9; Est GFR (Non-African American) 79.3
[2019-03-16 07:44] LABS: Chol HDL Ratio 6; Cholesterol 169 mg/dl (0-200); HDL Cholesterol 27 mg/dl; LDL Cholesterol Calculated 117 mg/dl; Triglycerides 125 mg/dl (0-150); Troponin I < 0.015 ng/ml (0-0.045); VLDL Cholesterol 25 mg/dl
[2019-03-16] MEDS: PROPRANOLOL HCL 20 MG TAB PO SCH (08:27)
[2019-03-16] MEDS: GABAPENTIN 100 MG CAP PO SCH (08:29)
[2019-03-16] MEDS ORDERED: VENLAFAXINE HCL XR 75 MG CAPXR PO SCH (09:00)
[2019-03-16] MEDS ORDERED: ASPIRIN 81 MG ECTAB PO SCH (09:00)
[2019-03-16] MEDS ORDERED: VENLAFAXINE HCL XR 37.5 MG CAPXR PO SCH (09:00)
[2019-03-16] MEDS ORDERED: dilTIAZem ER 180 MG CAPCR PO SCH (09:00)
--- NOTE | 2019-03-16 10:03 | Cardiology Consultation ---
Date of Consultation March 16, 2019 Assessment & Plan (1) Chest pain: Chest pain: His chest pain does not appear to be cardiac in etiology, the cause is not clear but it has resolved. I would not pursue further evaluation. (2) Palpitations: He had an elevated heart rate by his description, the pacemaker did not document a significant arrhythmia. It is possible he had an arrhythmia below the detection settings of his pacemaker, however this does not appear to be dangerous. I would not pursue further evaluation at this time. History of Present Illness Reason for Consultation: Chest pain, palpitations Attending Physician: Margie Caldwell MD History of Present Illness This is a 33-year-old gentleman with a history of diabetes, hypertension, palpitations and SVT. I saw him in the office last in 2015. He has had ablations performed in the past, apparently not successful, and has continued to have palpitations. Given his palpitations and complex cardiovascular history we planned loop recorder implantation when I saw him in June 2016. He ended up having that done at the [facility] and I never saw him subsequently. Evidently that showed bradycardia and he ended up having a pacemaker implanted on October 29, 2017, it is a [employer] Advisa. That is evidently followed by the [facility]. He presents now with chest discomfort and was admitted to telemetry. He describes chest pain and tachycardia while mowing the lawn, then developed radiation to his left arm. With a home blood pressure cuff he reports a blood pressure of around 100 systolic and heart rates as high as 130 bpm. He came into the emergency room but he has not had an arrhythmia identified. The chest discomfort has resolved. Allergies Allergy/AdvReac Type Severity Reaction Status Date / Time ibuprofen Allergy Mild RASH Verified 03/17/19 09:59 Pork/Porcine Containing Allergy Unknown Unknown Verified 03/17/19 09:59 Products MARSHMALLOWS Allergy Unknown Unknown Uncoded 03/17/19 09:59 Home Medications Home Medications Medication Instructions Recorded Confirmed Type albuterol sulfate 1 puff INHALATION Q4 PRN 08/12/18 03/15/19 History aspirin [Aspir-81] 81 mg PO DAILY 08/12/18 03/15/19 History betamethasone dipropionate 1 applic TOPICAL DAILY PRN 08/12/18 03/15/19 History diltiazem HCl 180 mg PO DAILY 08/12/18 03/15/19 History hydroxyzine HCl 25 mg PO HS PRN 08/12/18 03/15/19 History metformin 500 mg PO BID 08/12/18 03/15/19 History propranolol 60 mg PO BID 08/12/18 03/15/19 History urea 1 applic TOPICAL DAILY PRN 08/12/18 03/15/19 History venlafaxine 112.5 mg PO DAILY 08/12/18 03/15/19 History venlafaxine 112.5 mg PO DAILY 08/12/18 03/15/19 History Patient History Medical History Diabetes (Chronic) Hypertension (Chronic) SVT (supraventricular tachycardia) (Chronic) Presence of combination internal cardiac defibrillator (ICD) and pacemaker PTSD (post-traumatic stress disorder) TBI (traumatic brain injury) Family History Other No significant family history Social History Preferred Language: Nauruan Communication Ability: Effective Beliefs That Will Affect Care: Spiritual Spiritual Healthcare Practices: Spiritual beliefs marital status: Current Living Situation: Spouse and Family current occupational status: disabled Feels Safe at Home: Yes Smoking Status: Current every day smoker Tobacco Type: cigarettes Cigarettes Per Day: 4-6 Second Hand Exposure: No Hx Alcohol Use: Yes Hx Substance Use: Yes substance use type: marijuana Review of Systems Review of Systems: All systems reviewed & are unremarkable except as noted in HPI & below Physical Exam Physical Exam: Constitutional: Alert, cooperative and in no distress. HEENT: Unremarkable Neck: No jugular venous distention, carotid pulses are normal and equal bilaterally without bruits. Pulmonary: Clear to auscultation bilaterally. Cardiac: Regular rhythm with no murmur, gallop or rub. Abdomen: Soft, nontender with normal bowel sounds. Extremities: No edema. Distal pulses intact. Neurologic: No focal findings. Gait is steady. Skin: The device site is well-healed without erythema, swelling or tenderness. No rash, ecchymoses or petechiae. Results & Data Vital Signs (Past 12 Hours) Vital Signs Temp Pulse Pulse Resp BP Pulse Ox 03/16/19 09:27 36.5 C 75 18 127/82 100 03/16/19 06:51 36.5 C 75 18 127/82 100 03/16/19 03:39 36.6 C 73 18 108/67 100 03/16/19 00:15 36.8 C 72 12 128/79 100 03/16/19 00:00 66 Diagnostic Findings ECG: Sinus rhythm with occasional atrial pacing, intact AV conduction Telemetry: Intermittent atrial pacing Pacemaker evaluation: Pacemaker is working normally with no detected arrhythmias
--- NOTE | 2019-03-23 07:45 | Discharge Summary ---
Date of Service March 16, 2019 Admission HPI Per Admitting Provider Mr. Haywood presents to the ED today for complaints of chest pain and rapid heart rate. He was mowing his lawn today when he developed precordial chest pain that radiated to his left arm and back with associated diaphoresis, palpitations, dizziness and blue fingers on the left. He took a shower to try and calm down which did not help. He took his blood pressure on his home meter which showed a spb around 100 and heart rate as high as the 130s. 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, DMII, asthma, htn, PTSD, TBI, SVT, neuropathy, hypokalemia Social: , has six kids, on disability with the [employer], smokes 4 cigarettes per day and vapes with about a 9 year pack history, oral marijuana use twice per day due to yarsani reasons, very rare alcohol about 1 beer per month Principal Diagnosis Atypical chest pain Discharge Exam Patient left AMA prior to me seeing him Discharge Data Allergies Allergy/AdvReac Type Severity Reaction Status Date / Time ibuprofen Allergy Mild RASH Verified 03/17/19 09:59 Pork/Porcine Containing Allergy Unknown Unknown Verified 03/17/19 09:59 Products MARSHMALLOWS Allergy Unknown Unknown Uncoded 03/17/19 09:59 Consultations 03/15/19 18:12 ED Decision to Admit Stat 03/15/19 19:24 Consult Cardiology Routine Hospital Course (1) Chest pain: admitted to telemetry In the setting of history of SVT with rapid heart rate as seen on patient's home blood pressure cuff. In the ED heart rate has only been as high as 113 Troponins serially negative, EKG showed NSR Consult cardiology -reviewed pacer interrogation, no stress test needed as per my discussion with Cardiology who saw the patient before I did Pt left AMA before I could even see him on the floor (2) Hypertension: continue diltiazem and propranolol (3) SVT (supraventricular tachycardia): see above (4) DMII (diabetes mellitus, type 2): type II hold metformin - ss, bsgs ac & hs (5) Leukocytosis: Lyme titer neg CBC in am (6) Asthma: Continue home albuterol (7) DVT prophylaxis: SCDs ordered Dispo-patient left AMA prior to me seeing him Total Time Total Time Spent Total Time Spent (In Minutes): <30 min Total Time Includes: Communication With Other Providers (Cardiology) Discharge Plan Discharge Items Disposition: Against Medical Advice Diet: Carb Count or DM1 Admission Data Admit Date/Time: 03/15/19 18:26 Service: Telemetry Other DC Date/Time DO NOT enter until pt leaves facility: 03/16/19 09:29
== END 2019-03-16 09:29 | disposition left against medical advice (07) ==
LOC: 2S 16:19 → ED 16:19 → SUATTDRO 18:26 → 2S 18:54
DX: Z91.018 Allergy to other foods; R07.9 Chest pain, unspecified; I47.1 Supraventricular tachycardia; J45.909 Unspecified asthma, uncomplicated; I10 Essential (primary) hypertension; E11.9 Type 2 diabetes mellitus without complications; D72.829 Elevated white blood cell count, unspecified

== ENCOUNTER 2019-05-22 15:50 | Observation (INO) ==
[2019-05-22] MEDS ORDERED: ASPIRIN CHEW 324 MG PO STA (16:07)
[2019-05-22 16:15] LABS: Basophils # (auto) 0.02 K/uL (0-0.2); Basophils % (auto) 0.2 %; Eosinophils # (auto) 0.05 K/uL (0-0.5); Eosinophils % (auto) 0.5 %; Hematocrit (blood only) 43.5 % (42-52); Hemoglobin 15.5 g/dL (14.0-18.0); Immature Granulocytes # (auto) 0.02 K/uL (0.00-0.02); Immature Granulocytes % (auto) 0.2 %; Lymphocytes # (auto) 2.47 K/uL (1.2-3.4); Lymphocytes % (auto) 25.1 %; Mean Corpuscular Hgb Conc 35.6 g/dL (32-36); Mean Corpuscular Volume 88.6 fL (80-100); Monocytes # (auto) 0.72 K/uL (0.11-0.59); Monocytes % (auto) 7.3 %; Neutrophils # (auto) 6.57 K/uL (1.4-6.5); Neutrophils % (auto) 66.7 %; Platelet Count 216 K/uL (130-400); RDW Coefficient of Variation 13.5 % (11.5-14.5); Red Blood Count 4.91 M/uL (4.7-6.1); White Blood Count 9.85 K/uL (4.8-10.8)
[2019-05-22 16:41] LABS: D Dimer 250 ug/L FEU (0-500); Partial Thromboplastin Ratio 1.1; Partial Thromboplastin Time 29.6 Seconds (21.0-31.0); Prothrombin Time 10.3 Seconds (9.0-12.0)
[2019-05-22 16:45] LABS: BUN Creatinine Ratio 5.6 (10-20); Blood Urea Nitrogen 7 mg/dl (7-18); Calcium 9.6 mg/dl (8.5-10.1); Carbon Dioxide 25 mmol/L (21-32); Chloride 108 mmol/L (98-107); Creatinine Clr Calc Pharmacy 91.9 ml/min; Est GFR (African American) 89.2; Glucose 115 mg/dl (70-99); Potassium 3.5 mmol/L (3.5-5.1); Sodium 140 mmol/L (136-145)
[2019-05-22 16:50] LABS: Troponin I < 0.015 ng/ml (0-0.045)
--- NOTE | 2019-05-22 16:53 | CT Scan Report ---
CT head/brain wo con CLINICAL HISTORY: 33 years-old Male with syncope fall hit his head unsure if he blacked out. Acute p osttraumatic head injury with possible syncope. Acute dizziness TECHNIQUE: Multiple axial CT images of the head were obtained without contrast. A dose lowering tech nique was utilized adhering to the principles of ALARA. COMPARISON: CT head 08/12/2018 FINDINGS: No acute intracranial hemorrhage, midline shift, intracranial mass, hydrocephalus, territorial ischem ia or abnormal extra-axial collection. The calvarium is intact. The paranasal sinuses, mastoid air cells, and middle ear cavities are clear . IMPRESSION: No acute intracranial abnormality or calvarial fracture. The above report was generated using voice recognition software. It may contain grammatical, syntax o r spelling errors. Electronically signed by: Robert Peter M.D. 05/22/2019 4:52 PM
--- NOTE | 2019-05-22 17:28 | XRay Report ---
TWO VIEW CHEST CLINICAL HISTORY: Atypical chest pain. FINDINGS: PA and lateral chest radiographs are compared to study dated 03/17/2019. A 2-lead cardiac pa cemaker is unchanged in position and partially obscures the left upper chest. The cardiomediastinal s ilhouette is unremarkable. The lungs and pleural spaces are clear. There is no pneumothorax. The bon y thorax appears intact. IMPRESSION: 1. The lungs are clear. 2. A cardiac pacemaker is in place. There is no radiographic evidence of congestive failure. Electronically signed by: Julien Claire M.D. 05/22/2019 5:26 PM
--- NOTE | 2019-05-22 18:40 | History & Physical Report ---
Date of Service May 22, 2019 Assessment & Plan (1) Syncope: Medication noncompliance for several days. Suspect cardiac syncope. Telemetry. Resume oral medications. Cardiology consultation Present on Admission?: Yes (2) PSVT (paroxysmal supraventricular tachycardia): Telemetry. Resume oral medications. Cardiology consultation. Cardiac echo Present on Admission?: Yes (3) Sick sinus syndrome: Patient has a pacemaker defibrillator. History of cardiac arrest while in the [employer] in [place] recently. Present on Admission?: Yes (4) DMII (diabetes mellitus, type 2): ADA diet. Sliding scale insulin coverage as needed. Metformin is on hold Present on Admission?: Yes (5) DVT prophylaxis: Lovenox subcu History of Present Illness Chief Complaint: 33-year-old male with a complicated cardiac history. He has a pacer defibrillator in place apparently due to an episode of cardiac arrest that occurred while he was in the [employer] while in [place]. He has a history of SVT. He has had recurrent palpitations and apparently has had several witnessed syncopal episodes recently. He also has vague chest pain at rest and with exertion radiating to the left shoulder. He apparently stopped taking all of his medications several days ago because he says they just do not work. Currently he is alert and oriented in no acute distress. He is a somewhat vague historian and has a tendency to elaborate on his symptoms. He is current EKG reveals normal sinus rhythm with left atrial enlargement and intraventricular conduction delay. He will be placed in observation with telemetry and his medications restarted. Cardiac echo is pending. Cardiology consultation is pending. He is diabetic. Metformin has been placed on hold. Sliding scale insulin coverage as needed Primary Care Provider: Maritza Alcantara Allergies Allergy/AdvReac Type Severity Reaction Status Date / Time ibuprofen Allergy Mild RASH Verified 05/22/19 18:13 Pork/Porcine Containing Allergy Unknown Unknown Verified 05/22/19 18:13 Products MARSHMALLOWS Allergy Unknown Unknown Uncoded 05/22/19 18:13 Home Medications Home Medications Medication Instructions Recorded Confirmed Type albuterol sulfate 1 puff INHALATION Q4 PRN 08/12/18 05/22/19 History aspirin [Aspir-81] 81 mg PO DAILY 08/12/18 05/22/19 History betamethasone dipropionate 1 applic TOPICAL DAILY 08/12/18 05/22/19 History diltiazem HCl 180 mg PO DAILY 08/12/18 05/22/19 History hydroxyzine HCl 50 mg PO HS PRN 08/12/18 05/22/19 History metformin 500 mg PO BID 08/12/18 05/22/19 History propranolol 60 mg PO BID 08/12/18 05/22/19 History urea 1 applic TOPICAL DAILY PRN 08/12/18 05/22/19 History venlafaxine 112.5 mg PO QAM 08/12/18 05/22/19 History venlafaxine 112.5 mg PO QAM 08/12/18 05/22/19 History gabapentin 300 mg PO TID 05/22/19 05/22/19 History multivitamin with minerals 1 tab PO DAILY 05/22/19 05/22/19 History omega 1-lhf-hbb-fish oil [Fish Oil] 1 cap PO BID 05/22/19 05/22/19 History potassium chloride 10 meq PO DAILY 05/22/19 05/22/19 History rabeprazole 20 mg PO BID 05/22/19 05/22/19 History ranitidine HCl 300 mg PO HS 05/22/19 05/22/19 History Past Med/Surg History Medical History Hypertension (Chronic) SVT (supraventricular tachycardia) (Chronic) PTSD (post-traumatic stress disorder) Presence of combination internal cardiac defibrillator (ICD) and pacemaker TBI (traumatic brain injury) Family History Other No significant family history Social History Preferred Language: Korean Communication Ability: Effective Detacher Required: No Beliefs That Will Affect Care: Spiritual Spiritual Healthcare Practices: Spiritual beliefs marital status: Current Living Situation: Spouse and Family current occupational status: disabled Feels Safe at Home: Yes Smoking Status: Current every day smoker Tobacco Type: cigarettes Cigarettes Per Day: 4-6 Second Hand Exposure: No Hx Alcohol Use: Yes Hx Substance Use: Yes substance use type: marijuana Review of Systems Review of Systems: Constitutional-no fever or chills ENT-no blurred vision, no double vision, no epistaxis, no sore throat Respiratory-no cough, no wheezing. Shortness of breath with exertion Cardiac-palpitations, chest pain, syncope as described above GI-no nausea, vomiting, diarrhea, melena, hematochezia -no urinary retention, no urinary incontinence, no dysuria, no hematuria Musculoskeletal-no joint pain, no muscle tenderness Skin-no bruising, no rashes, no pruritus Neuro-no isolated weakness, no paresthesia, no weakness Psych-no depression, no anxiety Physical Exam Physical Exam: General-alert and oriented x3, no fevers, no chills HEENT-head atraumatic and normocephalic, TMs intact bilaterally, pupils equal and reactive to light, extraocular muscles intact Neck-no lymphadenopathy or thyromegaly, trachea midline Chest-clear to auscultation percussion. No rales wheezing or rhonchi Cardiac-regular rate and rhythm, normal S1 and S2, no JVD Abdomen-normal bowel sounds, nontender, no hepatosplenomegaly Extremities-no cyanosis, clubbing, or edema Neuro-cranial nerves II through XII intact, motor and sensory function within normal limits, strength symmetrical 5/5, no focal deficits Psych-normal affect, normal mood Results & Data Vital Signs (Past 12 Hours) Vital Signs Temp Pulse Resp BP Pulse Ox 05/22/19 17:44 75 14 121/87 100 05/22/19 17:30 84 14 100 05/22/19 17:00 76 24 100 05/22/19 16:30 80 24 100 05/22/19 16:24 100 05/22/19 16:03 86 20 100 05/22/19 15:53 36.9 C 87 12 132/92 100 Laboratory Results 05/22/19 16:00 05/22/19 16:00 PG Care Time/CCT Total # of Minutes Spent Total Time Spent with Patient: Total time spent is greater than 50% in coordination of care (as documented) at patient's floor/unit and/or counseling patient: (1) Syncope Syncope type: unspecified Qualified Code(s): R55 - Syncope and collapse
[2019-05-22] MEDS ORDERED: ALUMINUM/MAGNESIUM SUSP 30 ML UDC PO PRN (19:32)
[2019-05-22] MEDS ORDERED: ALBUTEROL HFA 8 GM INHALER INH PRN (19:32)
[2019-05-22] MEDS ORDERED: ACETAMINOPHEN 325 MG TAB PO PRN (19:32)
[2019-05-22] MEDS ORDERED: ONDANSETRON INJ 2 MG/ML 2 ML VIAL IV PRN (19:32)
[2019-05-22] MEDS ORDERED: UREA TOP PRN (19:32)
[2019-05-22] MEDS ORDERED: ENOXAPARIN INJ 40 MG/0.4 ML SYR SQ SCH (21:00)
[2019-05-22] MEDS: INSULIN ASPART 100 UNITS/ML 3 ML PEN SC SCH (21:07)
[2019-05-22] MEDS: PANTOprazole 40 MG TAB PO SCH (21:12)
[2019-05-22] MEDS: PROPRANOLOL HCL 20 MG TAB PO SCH (21:12)
[2019-05-22] MEDS: GABAPENTIN 300 MG CAP PO SCH (21:13)
[2019-05-22] MEDS: OMEGA-3 (PURIFIED FISH OIL) 1 GM CAP PO SCH (21:14)
[2019-05-22] MEDS: dilTIAZem ER 180 MG CAPCR PO SCH (21:15)
[2019-05-22] MEDS: ASPIRIN 81 MG ECTAB PO SCH (21:18)
--- NOTE | 2019-05-22 23:33 | Emergency Department Note ---
Entered by Irvin Hernandez acting as a scribe for Nathen Carney History of Present Illness General Chief complaint: Chest Pain Time Seen by Provider: 05/22/19 16:04 Source: patient History of Present Illness Provider complaint: Chest pain Onset (ago): day(s) 1 Location: chest Severity: similar to prior episodes Pain Consistency: + constant Maximum Pain Intensity: 8 Current Pain Intensity: 8 Relieved By: + none Exacerbated By: + none Associated symptoms: + diaphoresis, + fever/chills (No fever), + nausea/vomiting (No vomiting), + shortness of breath and + syncope The patient is a 33 year old male with a PMHx of SVT, Heart block, Pacemaker, and Diabetes, who presents to the Emergency Room with complaints of constant chest pain that started last night. The patient rates the pain as an 8/10 and notes it feels similar to his past cardiac symptoms. The patient states that with the chest pain he also has shortness of breath, palpitations, diaphoresis, and chills. The patient notes he is also nauseous but denies any vomiting or diarrhea. He also mentioned that he had two syncopal episodes with the most recent being just prior to arrival where he fell to his knees while walking in his kitchen. He is not sure if he did hit his head during this event. The patient notes that since the start of his symptoms he has been having gaps in his memory as well. Moreover the patient mentioned that for the past 4 days he has not been taking his cardiac medication because he feels as though they are not working. During this time however, he has been taking his Metformin. The patient denies any use of blood thinners but does note he intermittently coughs up blood. He has seen the [facility] for this symptom and there has yet to be a diagnosis. The patient also denies any recent travel but does admit to smoking cigarettes and marijuana. He also notes that he had a beer 5 days ago and is allowed 1 per month given his health history. For his cardiac history, the patient currently takes Cardizem and Propranolol. Home Medications Home Medications Medication Instructions Recorded Confirmed Type albuterol sulfate 1 puff INHALATION Q4 PRN 08/12/18 05/22/19 History aspirin [Aspir-81] 81 mg PO DAILY 08/12/18 05/22/19 History betamethasone dipropionate 1 applic TOPICAL DAILY 08/12/18 05/22/19 History diltiazem HCl 180 mg PO DAILY 08/12/18 05/22/19 History hydroxyzine HCl 50 mg PO HS PRN 08/12/18 05/22/19 History metformin 500 mg PO BID 08/12/18 05/22/19 History propranolol 60 mg PO BID 08/12/18 05/22/19 History urea 1 applic TOPICAL DAILY PRN 08/12/18 05/22/19 History venlafaxine 112.5 mg PO QAM 08/12/18 05/22/19 History venlafaxine 112.5 mg PO QAM 08/12/18 05/22/19 History gabapentin 300 mg PO TID 05/22/19 05/22/19 History multivitamin with minerals 1 tab PO DAILY 05/22/19 05/22/19 History omega 3-hfe-inf-fish oil [Fish Oil] 1 cap PO BID 05/22/19 05/22/19 History potassium chloride 10 meq PO DAILY 05/22/19 05/22/19 History rabeprazole 20 mg PO BID 05/22/19 05/22/19 History ranitidine HCl 300 mg PO HS 05/22/19 05/22/19 History Allergies Allergy/AdvReac Type Severity Reaction Status Date / Time ibuprofen Allergy Mild RASH Verified 05/22/19 18:13 Pork/Porcine Containing Allergy Unknown Unknown Verified 05/22/19 18:13 Products MARSHMALLOWS Allergy Unknown Unknown Uncoded 05/22/19 18:13 Past Med/Surg History Medical History Hypertension (Chronic) SVT (supraventricular tachycardia) (Chronic) PTSD (post-traumatic stress disorder) Presence of combination internal cardiac defibrillator (ICD) and pacemaker TBI (traumatic brain injury) Family History Other No significant family history Social History Preferred Language: Montserratian Communication Ability: Effective Consultants Intern Required: No Beliefs That Will Affect Care: Spiritual Spiritual Healthcare Practices: Spiritual beliefs marital status: Current Living Situation: Spouse and Family current occupational status: disabled Other Information That Helps Us Care for You: No Feels Safe at Home: Yes Safety Concerns: Feels Safe At This Time Smoking Status: Current every day smoker Tobacco Type: cigarettes Cigarettes Per Day: 4-6 Do You Dip or Chew Tobacco: No Second Hand Exposure: No Tobacco Cessation Education Requested by Patient: No Hx Alcohol Use: Yes Hx Substance Use: Yes substance use type: marijuana Last Used Substance Other:: 1 week ago Review of Systems See HPI for pertinent positives & negatives. and A total of 10 systems reviewed and were otherwise negative Physical Exam Vital Signs Vital Signs - 24 hr 05/22/19 15:53 05/22/19 16:03 05/22/19 16:24 Temperature 36.9 C Temperature Source Oral Sepsis Recent Fever Within 48 Hours No Sepsis New/Unexplained Change in Mental Status No Sepsis Action Taken by Nursing No Action Required Pulse Rate 87 86 Pulse Rate from SpO2 Sensor 86 87 Pulse Rhythm Regular Pulse Strength Normal Respiratory Rate 12 20 Respiratory Effort / Characteristics Non-Labored Spontaneous Respiratory Depth Normal Respiratory Pattern Regular Blood Pressure 132/92 Blood Pressure Mean 105 Blood Pressure Position Lying Pulse Oximetry 100 100 100 Oxygen Delivery Method Room Air Room Air Room Air 05/22/19 16:30 05/22/19 17:00 05/22/19 17:30 Temperature Temperature Source Sepsis Recent Fever Within 48 Hours Sepsis New/Unexplained Change in Mental Status Sepsis Action Taken by Nursing Pulse Rate 80 76 84 Pulse Rate from SpO2 Sensor 82 76 85 Pulse Rhythm Pulse Strength Respiratory Rate 24 24 14 Respiratory Effort / Characteristics Respiratory Depth Respiratory Pattern Blood Pressure Blood Pressure Mean Blood Pressure Position Pulse Oximetry 100 100 100 Oxygen Delivery Method Room Air Room Air Room Air 05/22/19 17:44 05/22/19 17:45 05/22/19 18:00 Temperature Temperature Source Sepsis Recent Fever Within 48 Hours Sepsis New/Unexplained Change in Mental Status Sepsis Action Taken by Nursing Pulse Rate 75 74 97 H Pulse Rate from SpO2 Sensor 78 73 93 H Pulse Rhythm Pulse Strength Respiratory Rate 14 18 23 Respiratory Effort / Characteristics Respiratory Depth Respiratory Pattern Blood Pressure 121/87 134/81 Blood Pressure Mean 98 98 Blood Pressure Position Pulse Oximetry 100 100 98 Oxygen Delivery Method Room Air Room Air Room Air 05/22/19 18:30 05/22/19 18:31 Temperature Temperature Source Sepsis Recent Fever Within 48 Hours Sepsis New/Unexplained Change in Mental Status Sepsis Action Taken by Nursing Pulse Rate 88 90 Pulse Rate from SpO2 Sensor 85 93 H Pulse Rhythm Pulse Strength Respiratory Rate 16 25 H Respiratory Effort / Characteristics Respiratory Depth Respiratory Pattern Blood Pressure 122/92 Blood Pressure Mean 102 Blood Pressure Position Pulse Oximetry 100 100 Oxygen Delivery Method Room Air Room Air GENERAL: He is oriented to person, place, and time. He appears well-developed and well-nourished. He does not appear distressed. HENT: Exam performed. - Head: Normocephalic and atraumatic. - Right Ear: External ear normal. No mastoid tenderness. - Left Ear: External ear normal. No mastoid tenderness. - Mouth/Throat: The oropharynx is clear and moist. No trismus in the jaw. No dental abscesses or uvula swelling. No oropharyngeal exudate or tonsillar abscesses. EYES: Conjunctivae and EOM are normal. Pupils are equal, round, and reactive to light. Right eye exhibits no discharge. Left eye exhibits no discharge. No scleral icterus. NECK: Normal range of motion. Neck supple. No JVD present. No spinous process tenderness present. No carotid bruit present. No rigidity. No tracheal deviation and normal range of motion present. No Brudzinski's sign and no Kernig's sign noted. CV: Normal rate, regular rhythm, normal heart sounds and intact distal pulses. There is no peripheral edema. Palpable radial pulses bue. PULM/CHEST: Effort normal and breath sounds normal. No respiratory distress. No stridor. He has no wheezes. He has no rales. - Chest Wall: He exhibits no tenderness. Pacemaker in place. ABD: The abdomen is soft. Bowel sounds are normal. He has no distension. No mass is present. There is no tenderness. There is no rebound, no guarding, no Colon' s sign and no tenderness at McBurney's point. Rovsig negative. MUSC/SKEL: Normal range of motion. There is no peripheral edema, tenderness or deformity. LYMPH: No cervical adenopathy. NEURO: He is alert and oriented to person, place, and time. He has normal strength. No cranial nerve deficit or sensory deficit. Coordination and gait normal. GCS eye subscore is 4. GCS verbal subscore is 5. GCS motor subscore is 6. Cerebellar tests wnl. SKIN: Skin is warm and dry. He is not diaphoretic. PSYCH: He has a normal mood and affect. Behavior is normal. Judgment and thought content normal. Course 1609: Past medical records reviewed. The patient was evaluated in room [facility], and a complete history and physical examination were performed.The patient's EMR showed that he was recently hospitalized in February and seen by Dr. Estrada during this stay on March 16. After his evaluation he did not believe his chest pain was cardiac in etiology. 1750: Vital signs stable. Labs and imaging within normal limits. I spoke to Dr. Martinez [facility] Instrument Man who stated that the patient's past medical history and history of present illness are irregular and mildly concerning, however given he has a pacemaker he is not at any immediate risk. He stated [facility] or [facility]. I discussed the treatment options with the patient and given his new symptom of syncope and no recent echo, he would like to stay for observation. I spoke to Dr. Alexandra [facility] Hospitalist about the patient's case and plan. He agrees with the plan and will be accepting the patient for further evaluation. Consultations Consultation #1: I spoke to Dr. Martinez [facility] Instrument Man who stated that the patient's past medical history and history of present illness are irregular and mildly concerning, however given he has a pacemaker he is not at any immediate risk. He stated the [facility] or be admitted for observation. Time: 17:50 Consultation #2: I spoke to Dr. Alexandra [facility] Hospitalist about the patient's case and plan. He agrees with the plan and will be accepting the patient for further evaluation. Time: 18:00 Administered Medications Aspirin (Ecotrin Ectab) 81 mg PO DAILY YADIRA Stop: 06/21/19 20:29 Last Admin: 05/22/19 21:18 Dose: Not Given Documented by: [id number] Diltiazem HCl (Tiazac) 180 mg PO DAILY YADIRA Stop: 06/21/19 20:29 Last Admin: 05/22/19 21:15 Dose: 180 mg Documented by: [id number] Enoxaparin Sodium (Lovenox) 40 mg SQ Q24H YADIRA Stop: 06/21/19 20:59 Last Admin: 05/22/19 21:14 Dose: 40 mg Documented by: [id number] Fish Oil (Wiley-3 (Purified Fish Oil)) 1 gm PO BID YADIRA Stop: 06/21/19 20:59 Last Admin: 05/22/19 21:14 Dose: 1 gm Documented by: [id number] Gabapentin (Neurontin) 300 mg PO TID YADIRA Stop: 06/21/19 20:59 Last Admin: 05/22/19 21:13 Dose: 300 mg Documented by: [id number] Insulin Aspart (Novolog Flexpen) 0 units SC ACHS YADIRA Stop: 06/21/19 20:59 Last Admin: 05/22/19 21:07 Dose: Not Given Documented by: [id number] Cosigned by: [id number] Pantoprazole Sodium (Protonix) 40 mg PO BID YADIRA; Protocol Stop: 06/21/19 20:59 Last Admin: 05/22/19 21:12 Dose: 40 mg Documented by: [id number] Propranolol HCl (Inderal) 60 mg PO BID YADIRA Stop: 06/21/19 20:59 Last Admin: 05/22/19 21:12 Dose: 60 mg Documented by: [id number] Ranitidine HCl (Zantac) 300 mg PO HS YADIRA Stop: 06/21/19 20:59 Last Admin: 05/22/19 21:13 Dose: 300 mg Documented by: [id number] Discontinued Medications Aspirin (Aspirin) 324 mg PO NOW STA Stop: 05/22/19 16:08 Last Admin: 05/22/19 16:13 Dose: Not Given Documented by: [id number] Medical Decision Making Medical Records Attestation: I reviewed the patient's medical records. Home Medications Current Medication List: was personally reviewed by me Laboratory Data Attestation: I reviewed the patient's lab results. Result diagrams: 05/22/19 16:00 05/22/19 16:00 Lab Results 05/22/19 05/22/19 05/22/19 Range/Units 16:00 16:00 16:00 WBC 9.85 (4.8-10.8) K/uL RBC 4.91 (4.7-6.1) M/uL Hgb 15.5 (14.0-18.0) g/dL Hct 43.5 (42-52) % MCV 88.6 (80-100) fL MCH 31.6 (25-34) pg MCHC 35.6 (32-36) g/dL RDW Std Deviation 44.0 (36.4-46.3) fL RDW Coeff of Harinder 13.5 (11.5-14.5) % Plt Count 216 (130-400) K/uL MPV 11.0 H (7.4-10.4) fL Immature Gran % (Auto) 0.2 % Neut % (Auto) 66.7 % Lymph % (Auto) 25.1 % Wilson % (Auto) 7.3 % Eos % (Auto) 0.5 % Baso % (Auto) 0.2 % Immature Gran # (Auto) 0.02 (0.00-0.02) K/uL Neut # (Auto) 6.57 H (1.4-6.5) K/uL Lymph # (Auto) 2.47 (1.2-3.4) K/uL Wilson # (Auto) 0.72 H (0.11-0.59) K/uL Eos # (Auto) 0.05 (0-0.5) K/uL Baso # (Auto) 0.02 (0-0.2) K/uL PT 10.3 (9.0-12.0) Seconds INR 1.0 (0.9-1.1) APTT 29.6 (21.0-31.0) Seconds PTT Ratio 1.1 D-Dimer 250 (0-500) ug/L FEU Sodium 140 (136-145) mmol/L Potassium 3.5 (3.5-5.1) mmol/L Chloride 108 H (98-107) mmol/L Carbon Dioxide 25 (21-32) mmol/L Anion Gap 7.0 (3-11) BUN 7 (7-18) mg/dl Creatinine 1.24 (0.6-1.4) mg/dl Est Cr Clr Drug Dosing 91.9 ml/min Est GFR ( Amer) 89.2 Est GFR (Non-Af Amer) 77.0 BUN/Creatinine Ratio 5.6 L (10-20) Glucose 115 H (70-99) mg/dl Calcium 9.6 (8.5-10.1) mg/dl Troponin I < 0.015 (0-0.045) ng/ml Imaging Data Radiologist's Impression: Radiology results as stated below per my review and the radiologist's interpretation: TWO VIEW CHEST CLINICAL HISTORY: Atypical chest pain. FINDINGS: PA and lateral chest radiographs are compared to study dated 03/17/2019. A 2-lead cardiac pacemaker is unchanged in position and partially obs cures the left upper chest. The cardiomediastinal silhouette is unremarkable. The lungs and pleural spaces are clear. There is no pneumothorax. The bony thorax appears intact. IMPRESSION: 1. The lungs are clear. 2. A cardiac pacemaker is in place. There is no radiographic evidence of congestive failure. Electronically signed by: Julien Claire M.D. 05/22/2019 5:[address] head/brain wo con CLINICAL HISTORY: 33 years-old Male with syncope fall hit his head unsure if he blacked out. Acute posttraumatic head injury with possible syncope. Acute dizziness TECHNIQUE: Multiple axial CT images of the head were obtained without contrast. A dose lowering technique was utilized adhering to the principles of ALARA. COMPARISON: CT head 08/12/2018 FINDINGS: No acute intracranial hemorrhage, midline shift, intracranial mass, hydrocephalus, territorial ischemia or abnormal extra-axial collection. The calvarium is intact. The paranasal sinuses, mastoid air cells, and middle ear cavities are clear. IMPRESSION: No acute intracranial abnormality or calvarial fracture. The above report was generated using voice recognition software. It may contain grammatical, syntax or spelling errors. Electronically signed by: Robert Peter M.D. 05/22/2019 4:52 PM ECG Data Attestation: I personally reviewed and interpreted this ECG as follows: Indication: chest pain Rate (beats per minute): 81 Rhythm: normal sinus Findings: + other (OR, QRS and QTC intervals within normal limits ); no ST depression and no ST elevation Blood Pressure Blood Pressure Findings: Normal blood pressure MDM Narrative Vital signs stable. Labs and imaging within normal limits. I spoke to Dr. Juan Ledesma [facility] Instrument Man who stated that the patient's past medical history and history of present illness are irregular and mildly concerning, however given he has a pacemaker he is not at any immediate risk. He stated the [facility] or be [facility] for [facility]. I discussed the treatment options with the patient and given his new symptom of syncope and no recent echo, he would like to stay for observation. I spoke to Dr. Nasrin Ledesma [facility] Hospitalist about the patient's case and plan. He agrees with the plan and will be accepting the patient for further evaluation. Impression & Plan Chest pain, Palpitations, Syncope Discharge Plan Visit Data *Final* Discharge Date/Time: 05/22/19 19:24 Chief Complaint: Chest Pain ED Provider: Nathen Carney Discharge Problem: Chest pain, Palpitations, Syncope Patient Disposition: Admitted As Inpatient Discharge Instructions Interventions: ED Discharge Assessment Last Done: 05/22/19 19:24 Discharge Problem: Chest pain Qualifiers: Chest pain type: unspecified Qualified Code(s): R07.9 - Chest pain, unspecified Syncope Qualifiers: Syncope type: unspecified Qualified Code(s): R55 - Syncope and collapse The scribe's documentation has been prepared under my direction and personally reviewed by me in its entirety. I confirm that the note above accurately reflects all work, treatment, procedures, and medical decision making performed by me.
[2019-05-23] MEDS: INSULIN ASPART 100 UNITS/ML 3 ML PEN SC SCH (08:35)
[2019-05-23] MEDS: ASPIRIN 81 MG ECTAB PO SCH (08:37)
[2019-05-23] MEDS: PROPRANOLOL HCL 20 MG TAB PO SCH (08:37)
[2019-05-23] MEDS: GABAPENTIN 300 MG CAP PO SCH (08:37)
[2019-05-23] MEDS: OMEGA-3 (PURIFIED FISH OIL) 1 GM CAP PO SCH (08:37)
[2019-05-23] MEDS: PANTOprazole 40 MG TAB PO SCH (08:37)
[2019-05-23] MEDS: dilTIAZem ER 180 MG CAPCR PO SCH (08:38)
[2019-05-23] MEDS ORDERED: POTASSIUM CHLORIDE 10 MEQ TABCR PO SCH (09:00)
[2019-05-23] MEDS ORDERED: VENLAFAXINE HCL XR 75 MG CAPXR PO SCH (09:00)
[2019-05-23] MEDS ORDERED: CEROVITE ADV FORMULA TAB PO SCH (09:00)
[2019-05-23] MEDS ORDERED: VENLAFAXINE HCL XR 37.5 MG CAPXR PO SCH (09:00)
--- NOTE | 2019-05-23 18:54 | Discharge Summary ---
Date of Service May 23, 2019 Principal Diagnosis Syncope Discharge Exam Constitutional WD/WN, vitals as above Eyes EOM intact bilaterally; no conjunctival abnormality ENMT external ear and nose normal, oropharynx normal Neck trachea midline, no thyromegaly normal visual inspection Respiratory normal respiratory effort, lungs clear to auscultation no respiratory distress Cardiovascular RRR, no murmur, no edema Gastrointestinal (Abdomen) Inspection/Auscultation: abdomen normal to inspection; abdomen not distended Musculoskeletal no cyanosis or clubbing, extremities motor strength 5/5 Skin no rashes, warm and dry Neurologic moves all extremities and awake Psychiatric Orientation: alert, oriented to person and cooperative Discharge Data Allergies Allergy/AdvReac Type Severity Reaction Status Date / Time ibuprofen Allergy Mild RASH Verified 05/22/19 18:13 Pork/Porcine Containing Allergy Unknown Unknown Verified 05/22/19 18:13 Products MARSHMALLOWS Allergy Unknown Unknown Uncoded 05/22/19 18:13 Consultations 05/22/19 17:58 ED Decision to Admit Stat 05/22/19 19:32 Consult Cardiology Routine Ordered Studies 05/22/19 16:13 CT head/brain wo con Stat Hospital Course (1) Syncope: Medication noncompliance for several days. - Suspected cardiac syncope. - Patient left before being seen by cardiology. - Echo on 05/23 showed LVEF 50-55%, otherwise normal. (2) PSVT (paroxysmal supraventricular tachycardia): Telemetry. - See above. (3) Sick sinus syndrome: Patient has a pacemaker defibrillator. History of cardiac arrest while in the [employer] in [place] recently. (4) DMII (diabetes mellitus, type 2): ADA diet. Sliding scale insulin coverage as needed. Metformin is on hold (5) DVT prophylaxis: Lovenox subcu Total Time Total Time Spent Total Time Spent (In Minutes): 25 Discharge Plan Discharge Items Patient Disposition: Home - Self-Care Reason For Visit: RECURRENT SVT,SYNCOPE Discharge Diagnosis: Recurrent SVT, syncope Discharge Goals: Decrease discomfort and Improve disease control Activity: Resume your previous activity Non-emergency contact: Primary Care Provider and Neonatal Critical Care Nurse Call non-emergency contact if: your symptoms worsen Follow-up/Referrals: Maritza Alcantara [Primary Care Provider] - Diet: Regular Addtl Provider Instructions: [facility] Prescriptions: Continued metformin 500 mg Tablet 500 mg PO BID RF: 0 diltiazem HCl 180 mg Capsule,Extended Release 24 Hr 180 mg PO DAILY RF: 0 urea 20 % Cream 1 applic TOPICAL DAILY PRN (Reason: Dry Skin) RF: 0 propranolol 60 mg Tablet 60 mg PO BID RF: 0 aspirin [Aspir-81] 81 mg Tablet,Delayed Release (Dr/Ec) 81 mg PO DAILY RF: 0 betamethasone dipropionate 0.05 % Cream 1 applic TOPICAL DAILY RF: 0 hydroxyzine HCl 25 mg Tablet 50 mg PO HS PRN (Reason: Sleep) RF: 0 albuterol sulfate 90 mcg/actuation Hfa Aerosol Inhaler 1 puff INHALATION Q4 PRN (Reason: Shortness Of Breath) RF: 0 venlafaxine 37.5 mg Tablet Extended Release 24hr 112.5 mg PO QAM RF: 0 venlafaxine 75 mg Tablet Extended Release 24hr 112.5 mg PO QAM RF: 0 ranitidine HCl 150 mg Tablet 300 mg PO HS RF: 0 rabeprazole 20 mg Tablet,Delayed Release (Dr/Ec) 20 mg PO BID RF: 0 gabapentin 300 mg Capsule 300 mg PO TID RF: 0 multivitamin with minerals Tablet 1 tab PO DAILY RF: 0 omega 9-tld-pcq-fish oil [Fish Oil] 1,000 mg (120 mg-180 mg) Capsule 1 cap PO BID RF: 0 potassium chloride 20 mEq Tablet Extended Release 10 meq PO DAILY RF: 0 Stand-Alone Forms: Call Back Authorization, [facility] Discharge Orders: Discharge Order (Routine); Ordered 05/23/19 Ordered By: Joni Lin Admission Data Admit Date/Time: 05/22/19 18:42 Attending Provider: Joni Lin Admit Provider: Irvin Alexandra Primary Care Provider: Maritza Alcantara Other Providers: Orion Reid ; Wood Jackson ; Stone Gill ; Geovani Estrada ; Clyde Funez Jr ; Joesph Clayton ; Julieta Basurto ; Maddie Rich ; Leoncio Guerrero ; Leoncio Martinez ; Marvin Barr ; Irvin Rivas ; Maritza Vo ; Latonya Aviles ; Joni Lin Service: Telemetry Other Interventions: Discharge Summary Assessment (RN) Last Done: 05/23/19 10:05 DC Date/Time DO NOT enter until pt leaves facility: 05/23/19 10:45
== END 2019-05-23 10:45 | disposition home or self-care (01) ==
LOC: ED 15:50 → 2S 15:50 → SUATTDRO 18:42 → 2S 19:24